=== PATIENT | female | born 1995 | race Asian ===

== ENCOUNTER 2017-01-07 21:26 | Emergency (ER) | payer OTHER ==
[2017-01-07 21:44] VITALS: BP 102/63
--- NOTE | 2017-01-07 22:02 | ED ---
Lower Extremity - HPI Summary HPI Summary: Pt here w/ Lt ankle/foot pain since twisting prior to arrival. Was walking with sneakers on and believes she stepped on uneven ground. Has pain along lateral ankle and foot since, worse w/ walking. Denies numbness, tingling, weakness. Fell and scraped Rt knee as well - no pain in knee other than skin irritation. Did not hit head or land on hands. No other injuries to report. Does not want medication for pain but agrees to trying ice. Has not tried anything yet as it just happened prior to arrival and she came straight here. No previous injury here. - History of Current Complaint Chief Complaint: EDExtremityLower Stated Complaint: ANKLE INJURY Time Seen by Provider: 01/07/17 21:29 Hx Obtained From: Patient Pain Intensity: 5 PMH/Surg Hx/FS Hx/Imm Hx Previously Healthy: Yes Endocrine/Hematology History: Denies: Hx Anticoagulant Therapy, Hx Blood Disorders Infectious Disease History: Denies: Traveled Outside the [place] in Last 30 Days - Family History Known Family History: Positive: None - Social History Occupation: Student Lives: With Family - roommate Alcohol Use: Occasionally Hx Substance Use: No Substance Use Type: Reports: None Hx Tobacco Use: No Smoking Status (MU): Never Smoked Tobacco Review of Systems Positive: no symptoms reported Musculoskeletal: Other - see HPI Skin: Other - scrape over Rt knee Negative: Bruising Neurological: Negative Psychological: Normal All Other Systems Reviewed And Are Negative: Yes Physical Exam Triage Information Reviewed: Yes Vital Signs On Initial Exam: Initial Vitals Temp Pulse Resp BP Pulse Ox 98.4 F 68 14 102/63 98 01/07/17 21:37 01/07/17 21:37 01/07/17 21:37 01/07/17 21:37 01/07/17 21:37 Vital Signs Reviewed: Yes Appearance: Positive: Well-Appearing, No Pain Distress, Well-Nourished Skin: Positive: Warm - coagulated superficial abrasion over skin of Rt patella - no anayeli debris, edema or ecchymosis Head/Face: Positive: Normal Head/Face Inspection Eyes: Positive: Normal, EOMI ENT: Positive: Hearing grossly normal Respiratory/Lung Sounds: Positive: Breath Sounds Present Cardiovascular: Positive: Normal, Pulses are Symmetrical in both Upper and Lower Extremities Musculoskeletal: Positive: Strength/ROM Intact, Limited @ - pt refrains from ankle movements d/t pain, Pain @ - Lt lateral malleolus and base of 5th MT are TTP; no gross deformity; toes, tibia and fibula are NTTP; FROM knees w/o pain or difficulty Neurological: Positive: Normal, Sensory/Motor Intact, Alert, Oriented to Person Place, Time, CN Intact II-III Psychiatric: Positive: Normal Diagnostics - Vital Signs Vital Signs Temp Pulse Resp BP Pulse Ox 01/07/17 21:37 98.4 F 68 14 102/63 98 - Laboratory Lab Statement: Any lab studies that have been ordered have been reviewed, and results considered in the medical decision making process. Lower Extremity Course/Dx - Diagnoses Provider Diagnoses: Left ankle sprain Discharge - Discharge Plan Condition: Stable Disposition: HOME Patient Education Materials: Ankle Sprain (ED), Crutch Instructions (ED) Referrals: [facility] [Outside] Additional Instructions: Rest, ice, compress with EVONNE wrap and elevate Follow-up with [facility] in 1-2 weeks if pain persists
--- NOTE | 2017-01-07 22:44 | RAD ---
HISTORY: Left ankle and foot injury, pain at base of fifth metatarsal COMPARISONS: None VIEWS: 3, Frontal, lateral, and oblique views of the left foot FINDINGS: BONE DENSITY: Normal. BONES: There is no displaced fracture. JOINTS: There is no arthropathy. ALIGNMENT: There is no dislocation. SOFT TISSUES: Unremarkable. OTHER FINDINGS: None. IMPRESSION: NO ACUTE OSSEOUS INJURY. IF SYMPTOMS PERSIST, RECOMMEND REPEAT IMAGING.
--- NOTE | 2017-01-07 22:44 | RAD ---
HISTORY: Left ankle injury COMPARISONS: None VIEWS: 3, Frontal, lateral, and oblique views of the left ankle FINDINGS: BONE DENSITY: Normal. BONES: There is no displaced fracture. JOINTS: There is no arthropathy. ALIGNMENT: There is no dislocation. SOFT TISSUES: Unremarkable. OTHER FINDINGS: None. IMPRESSION: NO ACUTE OSSEOUS INJURY. IF SYMPTOMS PERSIST, RECOMMEND REPEAT IMAGING.
== END 2017-01-07 22:52 | disposition home or self-care (01) ==
LOC: EDBD → ED 21:26
DX: S93.402A Sprain of unspecified ligament of left ankle, initial encounter (principal); W19.XXXA Unspecified fall, initial encounter; Y93.9 Activity, unspecified; Y92.9 Unspecified place or not applicable
CPT/HCPCS: 99282